=== PATIENT | male | born 1995 | race Caucasian/White ===

== ENCOUNTER 2018-01-26 19:12 | Emergency (ER) | payer BC, SELFPAY ==
[2018-01-26] MEDS ORDERED: IBUPROFEN 400 MG TAB ONE (19:37)
[2018-01-26] MEDS ORDERED: IBUPROFEN 200 MG TAB PO ONE (19:37)
--- NOTE | 2018-01-26 20:23 | ER ---
Nurse's Notes [facility] Name: Zhang Alves Age: 23 yrs Sex: Male : 1995 Arrival Date: 01/26/2018 Time: 19:12 Bed 15 Private MD: Diagnosis: Displaced unspecified fracture of right lesser toe(s) Presentation: 01/26 19:16 Presenting complaint: Patient states: Reports right 3rd toe pain during beach aj volleyball today. Transition of care: patient was not received from another setting of care. Onset of symptoms was January 26, 2018. Risk Assessment: Do you want to hurt yourself or someone else? Patient reports no desire to harm self or others. Initial Sepsis Screen: Does the patient meet any 2 criteria? No. Patient's initial sepsis screen is negative. Does the patient have a suspected source of infection? No. Patient's initial sepsis screen is negative. Care prior to arrival: None. 19:16 Method Of Arrival: Ambulatory 19:16 Acuity: SACHIN 4 aj Triage Assessment: 19:17 General: Appears in no apparent distress. comfortable, Behavior is calm, cooperative, aj appropriate for age. General: Smells of alcohol. Pain: Complains of pain in right third toe and Right third toenail. Neuro: Level of Consciousness is awake, alert, obeys commands, Oriented to person, place, time, situation, Appropriate for age. Respiratory: Airway is patent Respiratory effort is even, unlabored, Respiratory pattern is regular, symmetrical. Derm: Skin is intact, is healthy with good turgor, Skin is pink, warm \T\ dry. normal. Historical: - Allergies: 19:17 No Known Allergies; aj - Home Meds: 19:17 Bupropion Oral [Active]; aj - PMHx: 19:17 Depression; aj - PSHx: 19:17 None; aj - Immunization history:: Adult Immunizations up to date. - Social history:: Smoking status: Patient/guardian denies using tobacco, Patient uses alcohol, weekly. - Ebola Screening: : Patient negative for fever greater than or equal to 101.5 degrees Fahrenheit, and additional compatible Ebola Virus Disease symptoms Patient denies exposure to infectious person Patient denies travel to an Ebola-affected area in the 21 days before illness onset No symptoms or risks identified at this time. Screenin:31 Abuse screen: Denies threats or abuse. Nutritional screening: No deficits noted. ea Tuberculosis screening: No symptoms or risk factors identified. Fall Risk None identified. Assessment: 19:29 General: Appears in no apparent distress. Behavior is calm, cooperative, appropriate ea for age. Pain: Complains of pain in right third toe Pain does not radiate. Pain currently is 6 out of 10 on a pain scale. Quality of pain is described as aching, Pain began 30 min ago. Neuro: Level of Consciousness is awake, alert, obeys commands, Oriented to person, place, time, situation. Cardiovascular: Patient's skin is warm and dry. Respiratory: Airway is patent Respiratory effort is even, unlabored, Respiratory pattern is regular, symmetrical. GI: No signs and/or symptoms were reported involving the gastrointestinal system. : No signs and/or symptoms were reported regarding the genitourinary system. EENT: No signs and/or symptoms were reported regarding the EENT system. Derm: Skin is pink, warm \T\ dry. 20:40 Reassessment: Patient and/or family updated on plan of care and expected duration. Pain ea level reassessed. Patient is alert, oriented x 3, equal unlabored respirations, skin warm/dry/pink. Discharge instructions given to patient, verbalized the understanding of instruction. Patient states feeling better. Patient states symptoms have improved. Vital Signs: 19:17 BP 129 / 95; Pulse 102; Resp 16; Temp 98.4; Pulse Ox 97% on R/A; Weight 67.13 kg; aj Height 6 ft. 3 in. (190.50 cm); 20:32 BP 107 / 66; Pulse 60; Resp 18; Temp 98; Pulse Ox 98% on R/A; Pain 4/10; ea 19:17 Body Mass Index 18.50 (67.13 kg, 190.50 cm) ED Course: 19:12 Patient arrived in ED. ds1 19:17 Triage completed. aj 19:17 Arm band placed on left wrist. Patient placed in an exam room. aj 19:19 Jitendra Hwang MD is Attending Physician. gs 19:25 Alla Rolon, JESSICA is Primary Nurse. ea 19:31 Patient has correct armband on for positive identification. Bed in low position. Call ea light in reach. Side rails up X2. 20:00 Foot Right 3 View XRAY In Process Unspecified. EDMS 20:19 Fan Caceres MD is Referral Physician. gs 20:31 No provider procedures requiring assistance completed. ea 20:32 IV discontinued, intact, bleeding controlled, No redness/swelling at site. Pressure ea dressing applied. 20:40 Anselmo tape right third toe. ea Administered Medications: 19:40 Drug: Motrin 600 mg Route: PO; ea 20:19 Follow up: Response: No adverse reaction; Pain is decreased ea Outcome: 20:22 Discharge ordered by . gs 20:45 Discharged to home ambulatory. ea 20:45 Condition: improved 20:45 Discharge instructions given to patient, Instructed on discharge instructions, follow up and referral plans. medication usage, Demonstrated understanding of instructions, follow-up care, medications, Prescriptions given X 1. 20:45 Patient left the ED. ea Signatures: Dispatcher [employer] EDManisha Pérez RN RN aj Sanford, Demi ds1 Alla Rolon RN RN ea Starr, Gregory, MD MD gs
--- NOTE | 2018-01-26 20:23 | EDPHYS ---
Physician Documentation [facility] Name: Zhang Alves Age: 23 yrs Sex: Male : 1995 Arrival Date: 01/26/2018 Time: 19:12 Bed 15 Private MD: ED Physician Jitenrda Hwang HPI: 01/26 19:59 This 23 yrs old Male presents to ER via Ambulatory with complaints of Toe gs Injury. 19:59 The patient presents with a deformity, an injury. The complaints affect the right foot. gs Context: The problem was [place] the beach. Mechanism of Injury: blow. Onset: The symptoms/episode began/occurred suddenly. Modifying factors: the symptoms are aggravated by weight bearing. Associated signs and symptoms: Pertinent negatives: numbness. Severity of symptoms: At their worst the symptoms were moderate, in the emergency department the symptoms are unchanged. The patient has not experienced similar symptoms in the past. Historical: - Allergies: 19:17 No Known Allergies; aj - Home Meds: 19:17 Bupropion Oral [Active]; aj - PMHx: 19:17 Depression; aj - PSHx: 19:17 None; aj - Immunization history:: Adult Immunizations up to date. - Social history:: Smoking status: Patient/guardian denies using tobacco, Patient uses alcohol, weekly. - Ebola Screening: : Patient negative for fever greater than or equal to 101.5 degrees Fahrenheit, and additional compatible Ebola Virus Disease symptoms Patient denies exposure to infectious person Patient denies travel to an Ebola-affected area in the 21 days before illness onset No symptoms or risks identified at this time. ROS: 19:59 All other systems are negative. gs Exam: 19:59 Head/Face: Normocephalic, atraumatic. Eyes: Pupils equal round and reactive to light, gs extra-ocular motions intact. Lids and lashes normal. Conjunctiva and sclera are non-icteric and not injected. Cornea within normal limits. Periorbital areas with no swelling, redness, or edema. ENT: Nares patent. No nasal discharge, no septal abnormalities noted. Tympanic membranes are normal and external auditory canals are clear. Oropharynx with no redness, swelling, or masses, exudates, or evidence of obstruction, uvula midline. Mucous membranes moist. Neck: Trachea midline, no thyromegaly or masses palpated, and no cervical lymphadenopathy. Supple, full range of motion without nuchal rigidity, or vertebral point tenderness. No Meningismus. Chest/axilla: Normal chest wall appearance and motion. Nontender with no deformity. No lesions are appreciated. Cardiovascular: Regular rate and rhythm with a normal S1 and S2. No gallops, murmurs, or rubs. Normal PMI, no JVD. No pulse deficits. Respiratory: Lungs have equal breath sounds bilaterally, clear to auscultation and percussion. No rales, rhonchi or wheezes noted. No increased work of breathing, no retractions or nasal flaring. Abdomen/GI: Soft, non-tender, with normal bowel sounds. No distension or tympany. No guarding or rebound. No evidence of tenderness throughout. Back: No spinal tenderness. No costovertebral tenderness. Full range of motion. Skin: Warm, dry with normal turgor. Normal color with no rashes, no lesions, and no evidence of cellulitis. Neuro: Awake and alert, GCS 15, oriented to person, place, time, and situation. Cranial nerves II-XII grossly intact. Motor strength 5/5 in all extremities. Sensory grossly intact. Cerebellar exam normal. Normal gait. 19:59 Constitutional: The patient appears alert, awake. 19:59 Musculoskeletal/extremity: Extremities: noted in the right foot: deformity 3rd toe, ROM: limited active range of motion due to pain, limited passive range of motion due to pain, Pulses: are normal with no appreciated deficits. 19:59 Skin: injury, is not appreciated. Vital Signs: 19:17 BP 129 / 95; Pulse 102; Resp 16; Temp 98.4; Pulse Ox 97% on R/A; Weight 67.13 kg; aj Height 6 ft. 3 in. (190.50 cm); 20:32 BP 107 / 66; Pulse 60; Resp 18; Temp 98; Pulse Ox 98% on R/A; Pain 4/10; ea 19:17 Body Mass Index 18.50 (67.13 kg, 190.50 cm) aj MDM: 19:30 Patient medically screened. gs 19:59 Differential diagnosis: fracture, sprain. Data reviewed: vital signs, nurses notes. gs Response to treatment: the patient's symptoms have mildly improved after treatment, and as a result, I will discharge patient. 01/26 19:32 Order name: Foot Right 3 View XRAY; Complete Time: 20:39 01/26 19:56 Order name: Misc. Order: denisha tape right second and third toe; Complete Time: 20:31 Administered Medications: 19:40 Drug: Motrin 600 mg Route: PO; ea 20:19 Follow up: Response: No adverse reaction; Pain is decreased ea Disposition: 01/26/18 20:22 Discharged to Home. Impression: Displaced unspecified fracture of right lesser toe(s). - Condition is Stable. - Discharge Instructions: Toe Fracture. - Prescriptions for Tylenol- Codeine #4 300-60 mg Oral Tablet - take 1 tablet by ORAL route every 6 hours As needed; 6 tablet. - Medication Reconciliation Form, Thank You Letter, Antibiotic Education, Prescription Opioid Use form. - Follow up: Fan Caceres MD; When: 2 - 3 days; Reason: Re-evaluation by your physician. Signatures: Dispatcher [employer] EDManisha Pérez RN RN aj Antunez, Elena, RN RN ea Starr, Gregory, MD MD Corrections: (The following items were deleted from the chart) 20:45 20:22 01/26/2018 20:22 Discharged to Home. Impression: Displaced unspecified fracture ea of right lesser toe(s). Condition is Stable. Forms are Medication Reconciliation Form, Thank You Letter, Antibiotic Education, Prescription Opioid Use. Follow up: Fan Caceres; When: 2 - 3 days; Reason: Re-evaluation by your physician.
--- NOTE | 2018-01-26 20:38 | RAD REPORT ---
EXAM DESCRIPTION: RAD - Foot Right 3 View - 01/26/2018 8:00 pm CLINICAL HISTORY: Trauma, injury and pain to the third toe COMPARISON: None. FINDINGS: An oblique fracture is present through the head and distal shaft of the third proximal pha lanx. There is lateral displacement and angulation. Fracture does not appear to involve the articular surface of the third proximal phalanx. Middle and distal phalanges of the third toe are intact. Remaining toes are intact and no metatarsal injury seen. No air or foreign body. IMPRESSION: Fracture of the third proximal phalanx as detailed.
[2018-01-26 20:51] VITALS: BP 107/66; TEMP 98; O2SAT 98
== END 2018-01-26 20:45 | disposition home or self-care (01) ==
LOC: ER 19:12
DX: S92.501A Displaced unspecified fracture of right lesser toe(s), initial encounter for closed fracture (principal); X58.XXXA Exposure to other specified factors, initial encounter; Y93.9 Activity, unspecified; Y92.832 Beach as the place of occurrence of the external cause; F32.9 Major depressive disorder, single episode, unspecified
CPT/HCPCS: 99284

== ENCOUNTER 2018-04-18 21:16 | Emergency (ER) | payer SELFPAY ==
[2018-04-18 22:47] LABS: Urine Blood NEGATIVE (NEG); Urine Glucose NEGATIVE (NEG); Urine Protein NEGATIVE (NEG); Urine Specific Gravity >1.030 (1.005-1.030); Urine pH 5.5 (5.0-7.0)
[2018-04-18 23:11] LABS: Urine Bacteria <20 /HPF (NONE SEEN); Urine Culture Reflex Order NOT NEEDED; Urine Mucus HEAVY /HPF (NONE SEEN); Urine RBC NONE SEEN /HPF (NONE SEEN)
[2018-04-18] MEDS ORDERED: AZITHROMYCIN 250 MG TAB ONE (23:42)
[2018-04-18] MEDS ORDERED: CEFTRIAXONE 250 MG/VIAL ONE (23:43)
--- NOTE | 2018-04-19 | ER ---
Nurse's Notes [facility] Name: Zhang Alves Age: 23 yrs Sex: Male : 1995 Arrival Date: 04/18/2018 Time: 21:18 Bed 16 Private MD: Diagnosis: acute dysuria Presentation: 04/18 21:33 Presenting complaint: Patient states: Penile pain for 3 days with occasional burning aj with urination. Transition of care: patient was not received from another setting of care. Onset of symptoms was April 15, 2018. Risk Assessment: Do you want to hurt yourself or someone else? Patient reports no desire to harm self or others. Initial Sepsis Screen: Does the patient meet any 2 criteria? No. Patient's initial sepsis screen is negative. Does the patient have a suspected source of infection? No. Patient's initial sepsis screen is negative. Care prior to arrival: None. 21:33 Method Of Arrival: Ambulatory aj 21:33 Acuity: SACHIN 4 aj Triage Assessment: 21:35 General: Appears in no apparent distress. comfortable, Behavior is calm, cooperative, aj appropriate for age. Pain: Complains of pain in head of penis, shaft of penis and meatus. Neuro: Level of Consciousness is awake, alert, obeys commands, Oriented to person, place, time, situation, Appropriate for age. Respiratory: Airway is patent Respiratory effort is even, unlabored, Respiratory pattern is regular, symmetrical. : Reports burning with urination, pain with urination, in penis Denies discharge. Derm: Skin is intact, is healthy with good turgor, Skin is pink, warm \T\ dry. normal. Historical: - Allergies: 21:35 No Known Allergies; aj - Home Meds: 21:35 Bupropion Oral [Active]; aj - PMHx: 21:35 Depression; aj - PSHx: 21:35 None; aj - Immunization history:: Adult Immunizations. - Social history:: Smoking status: Patient uses tobacco products, denies chronic smoking, but will smoke occasionally, Patient uses alcohol, on a daily basis. - Ebola Screening: : Patient negative for fever greater than or equal to 101.5 degrees Fahrenheit, and additional compatible Ebola Virus Disease symptoms Patient denies exposure to infectious person Patient denies travel to an Ebola-affected area in the 21 days before illness onset No symptoms or risks identified at this time. - Family history:: not pertinent, pertinent for. Screenin:01 Abuse screen: Denies threats or abuse. Denies injuries from another. Nutritional ao screening: No deficits noted. Tuberculosis screening: No symptoms or risk factors identified. Fall Risk None identified. Assessment: 21:56 General: Appears in no apparent distress. comfortable, Behavior is calm, cooperative, ao appropriate for age. Pain: Complains of pain in shaft of penis and head of penis Pain currently is 4 out of 10 on a pain scale. Neuro: Level of Consciousness is awake, alert, obeys commands, Oriented to person, place, time, situation, Appropriate for age Moves all extremities. Full function Speech is normal, Facial symmetry appears normal, Pupils are PERRLA. Cardiovascular: Capillary refill < 3 seconds Patient's skin is warm and dry. Respiratory: Airway is patent Respiratory effort is even, unlabored, Respiratory pattern is regular, symmetrical. GI: Abdomen is flat. : Reports burning with urination, since 2 days discharge, from penis that is white, since 2 days. EENT: No signs and/or symptoms were reported regarding the EENT system. Derm: Skin is intact, Skin is pink, warm \T\ dry. normal, Skin temperature is warm. Musculoskeletal: Circulation, motion, and sensation intact. Range of motion: intact in all extremities. 23:10 Reassessment: Patient appears in no apparent distress at this time. Patient and/or ao family updated on plan of care and expected duration. Pain level reassessed. Patient is alert/active/playful, equal unlabored respirations, skin warm/dry/pink. waiting on orders. Vital Signs: 21:35 BP 115 / 76; Pulse 87; Resp 19; Temp 98.4; Pulse Ox 99% on R/A; Weight 65.77 kg; Height aj 6 ft. 4 in. (193.04 cm); 23:10 BP 118 / 74; Pulse 82; Resp 16; Pulse Ox 100% on R/A; ao 21:35 Body Mass Index 17.65 (65.77 kg, 193.04 cm) ED Course: 21:18 Patient arrived in ED. ag3 21:34 Triage completed. aj 21:35 Arm band placed on right wrist. Patient placed in waiting room, Patient notified of wait time. 21:47 Riccardo Joseph MD is Attending Physician. wi 21:53 Pawan Cordova RN is Primary Nurse. ao 22:00 Patient has correct armband on for positive identification. Pulse ox on. NIBP on. ao 04/19 00:22 No provider procedures requiring assistance completed. Patient did not have IV access ao during this emergency room visit. Administered Medications: 04/18 23:42 Drug: Rocephin (cefTRIAXone) 250 mg Route: IM; Site: right deltoid; ao 23:42 Drug: Zithromax 1 grams Route: PO; ao Outcome: 04/19 00:00 Discharge ordered by . wa 00:22 Discharged to home ambulatory. ao 00:22 Condition: stable 00:22 Discharge instructions given to patient, Instructed on discharge instructions, follow up and referral plans. Demonstrated understanding of instructions, follow-up care. 00:23 Patient left the ED. ao Signatures: Manisha Kim RN RN aj Ortiz, Alex, RN RN ao Appiah, William, MD MD wa Gomez, Alice ag3
--- NOTE | 2018-04-19 | EDPHYS ---
Physician Documentation [facility] Name: Zhang Alves Age: 23 yrs Sex: Male : 1995 Arrival Date: 04/18/2018 Time: 21:18 Bed 16 Private MD: ED Physician Riccardo Joseph HPI: 04/19 00:10 This 23 yrs old Male presents to ER via Ambulatory with complaints of Penile wa Pain. 00:10 The patient presents with urinary symptoms, dysuria. Onset: The symptoms/episode wa began/occurred 3 day(s) ago. Modifying factors: The symptoms are alleviated by nothing, the symptoms are aggravated by urinating. Associated signs and symptoms: The patient has no apparent associated signs or symptoms. Severity of symptoms: At their worst the symptoms were moderate, in the emergency department the symptoms are unchanged. The patient has experienced a previous episode, treated 6 months ago for STI. The patient has not recently seen a physician. Historical: - Allergies: 04/18 21:35 No Known Allergies; aj - Home Meds: 21:35 Bupropion Oral [Active]; aj - PMHx: 21:35 Depression; aj - PSHx: 21:35 None; aj - Immunization history:: Adult Immunizations. - Social history:: Smoking status: Patient uses tobacco products, denies chronic smoking, but will smoke occasionally, Patient uses alcohol, on a daily basis. - Ebola Screening: : Patient negative for fever greater than or equal to 101.5 degrees Fahrenheit, and additional compatible Ebola Virus Disease symptoms Patient denies exposure to infectious person Patient denies travel to an Ebola-affected area in the 21 days before illness onset No symptoms or risks identified at this time. - Family history:: not pertinent, pertinent for. ROS: 04/19 00:11 Constitutional: Negative for fever, chills, and weight loss, Eyes: Negative for injury, wa pain, redness, and discharge, ENT: Negative for injury, pain, and discharge, Neck: Negative for injury, pain, and swelling, Cardiovascular: Negative for chest pain, palpitations, and edema, Respiratory: Negative for shortness of breath, cough, wheezing, and pleuritic chest pain, Abdomen/GI: Negative for abdominal pain, nausea, vomiting, diarrhea, and constipation, Back: Negative for injury and pain, MS/Extremity: Negative for injury and deformity, Skin: Negative for injury, rash, and discoloration, Neuro: Negative for headache, weakness, numbness, tingling, and seizure. : Positive for burning with urination, Negative for hematuria, flank pain, difficulty urinating, penile discharge, testicular pain All other systems are negative. Exam: 00:12 Constitutional: This is a well developed, well nourished patient who is awake, alert, wa and in no acute distress. Head/Face: Normocephalic, atraumatic. Eyes: Pupils equal round and reactive to light, extra-ocular motions intact. Lids and lashes normal. Conjunctiva and sclera are non-icteric and not injected. Cornea within normal limits. Periorbital areas with no swelling, redness, or edema. ENT: Nares patent. No nasal discharge, no septal abnormalities noted. Tympanic membranes are normal and external auditory canals are clear. Oropharynx with no redness, swelling, or masses, exudates, or evidence of obstruction, uvula midline. Mucous membranes moist. Neck: Trachea midline, no thyromegaly or masses palpated, and no cervical lymphadenopathy. Supple, full range of motion without nuchal rigidity, or vertebral point tenderness. No Meningismus. Chest/axilla: Normal chest wall appearance and motion. Nontender with no deformity. No lesions are appreciated. Cardiovascular: Regular rate and rhythm with a normal S1 and S2. No gallops, murmurs, or rubs. Normal PMI, no JVD. No pulse deficits. Respiratory: Lungs have equal breath sounds bilaterally, clear to auscultation and percussion. No rales, rhonchi or wheezes noted. No increased work of breathing, no retractions or nasal flaring. Abdomen/GI: Soft, non-tender, with normal bowel sounds. No distension or tympany. No guarding or rebound. No evidence of tenderness throughout. Back: No spinal tenderness. No costovertebral tenderness. Full range of motion. Skin: Warm, dry with normal turgor. Normal color with no rashes, no lesions, and no evidence of cellulitis. MS/ Extremity: Pulses equal, no cyanosis. Neurovascular intact. Full, normal range of motion. Neuro: Awake and alert, GCS 15, oriented to person, place, time, and situation. Cranial nerves II-XII grossly intact. Motor strength 5/5 in all extremities. Sensory grossly intact. Cerebellar exam normal. Normal gait. Psych: Awake, alert, with orientation to person, place and time. Behavior, mood, and affect are within normal limits. 00:12 : CVA tenderness, is absent, Male external genitalia: normal, Bladder: is normal, non-distended, non-tender. Vital Signs: 04/18 21:35 BP 115 / 76; Pulse 87; Resp 19; Temp 98.4; Pulse Ox 99% on R/A; Weight 65.77 kg; Height aj 6 ft. 4 in. (193.04 cm); 23:10 BP 118 / 74; Pulse 82; Resp 16; Pulse Ox 100% on R/A; ao 21:35 Body Mass Index 17.65 (65.77 kg, 193.04 cm) MDM: 21:47 Patient medically screened. ut 04/19 00:13 Data reviewed: lab test result(s). Test interpretation: by ED physician or midlevel ut provider: UA negative. 04/18 22:18 Order name: Urine Microscopic Only; Complete Time: 23:25 ut 04/18 22:42 Order name: Urine Dipstick--Ancillary (enter results); Complete Time: 23:24 ok 04/18 22:18 Order name: Urine Dipstick-Ancillary (obtain specimen); Complete Time: 23:22 ut Administered Medications: 04/18 23:42 Drug: Rocephin (cefTRIAXone) 250 mg Route: IM; Site: right deltoid; ao 23:42 Drug: Zithromax 1 grams Route: PO; ao Disposition: 04/19/18 00:00 Discharged to Home. Impression: acute dysuria. - Condition is Stable. - Discharge Instructions: Dysuria. - Medication Reconciliation Form, Thank You Letter, Antibiotic Education, Prescription Opioid Use form. - Follow up: Private Physician; Reason: Recheck today's complaints. - Problem is new. - Symptoms have improved. - Notes: wear condoms. do not have unprotected sex. although your urine was clean, you were treated with antibiotics that cover both chlamydia and gonorrhea. your sexual partners need tested for sexually transmitted infections. Signatures: Dispatcher [employer] Manisha Silver RN RN aj Ortiz, Alex, RN RN ao Appiah, William, MD MD ut Corrections: (The following items were deleted from the chart) 04/19 00:23 00:00 04/19/2018 00:00 Discharged to Home. Impression: acute dysuria. Condition is ao Stable. Forms are Medication Reconciliation Form, Thank You Letter, Antibiotic Education, Prescription Opioid Use. Follow up: Private Physician; Reason: Recheck today's complaints. Problem is new. Symptoms have improved. wa
[2018-04-19 00:43] VITALS: TEMP 98.4
[2018-04-19 00:44] VITALS: BP 118/74; O2SAT 100
== END 2018-04-19 00:23 | disposition home or self-care (01) ==
LOC: ER 21:16
DX: R30.0 Dysuria (principal); F32.9 Major depressive disorder, single episode, unspecified
CPT/HCPCS: 81003; 81015; 96372; 99283; J0696

== ENCOUNTER 2024-03-16 12:49 | Emergency (ER) | payer SELFPAY ==
[2024-03-16] MEDS ORDERED: NA CHLORIDE 0.9% 100 ML ONE (13:23)
[2024-03-16] MEDS ORDERED: TDAP (DIPHTH,PERTUSS(ACELL),TET VAC) 0.5 ML VIAL IMVAC ONE (13:23)
[2024-03-16] MEDS ORDERED: MORPHINE 4 MG/ML SYR ONE (13:23)
[2024-03-16] MEDS ORDERED: CEFAZOLIN SODIUM 1 GM/VIAL ONE (13:23)
[2024-03-16] MEDS ORDERED: ONDANSETRON 4 MG/2 ML VIAL ONE (13:23)
[2024-03-16 13:49] LABS: Absolute Eosinophils 0.1 K/uL (0-0.5); Absolute Monocytes 0.5 K/uL (0.1-1.3); Absolute Neutrophil 4.3 K/uL (1.8-8.0); Basophils % 0.4 % (0-1.3); Eosinophils % 1.7 % (0-4.4); Hematocrit 42.9 % (39.6-49.0); Hemoglobin 14.8 g/dL (13.6-17.9); Lymphocytes % 29.4 % (15.3-44.8); MCHC 34.4 g/dL (32.0-36.0); MCV 90.1 fL (80-100); MPV 8.3 fL (7.6-11.3); Monocytes % 6.9 % (3.3-12.3); Neutrophils % 61.6 % (41.7-73.7); Platelets 305 thou/uL (152-406); RBC Red Blood Cell Count 4.77 M/uL (4.33-5.43); Red Cell Distribution Width 12.6 % (12.1-15.2)
[2024-03-16 14:03] LABS: Anion Gap 9.5 mEq/L (5.0-15.0); Potassium 3.5 mEq/L (3.5-5.1)
[2024-03-16] MEDS ORDERED: HYDROMORPHONE HCL 1 MG/ML INJ ONE (14:09)
--- NOTE | 2024-03-16 14:18 | EDPHYS ---
Physician Documentation [facility] Name: Zhang Alves Age: 29 yrs Sex: Male : 1995 Arrival Date: 03/16/2024 Time: 12:49 Bed 3 Private MD: ED Physician Hans Thomason HPI: 03/16 13:23 This 29 yrs old Male presents to ER via Ambulatory with complaints of Finger Injury. cp 13:23 The patient or guardian reports decreased range of motion, deformity, injury, a cp laceration. 13:23 The complaints affect the right index finger. Context: resulted from wooden board cp striking finger while using table saw. Onset: The symptoms/episode began/occurred just prior to arrival. Associated signs and symptoms: The patient has no apparent associated signs or symptoms. Historical: - Allergies: 12:54 No Known Allergies; bp - PMHx: 12:54 Depression; bp - Immunization history:: Adult Immunizations. - Infectious Disease History:: Denies. - Social history:: Smoking status: unknown. ROS: 13:25 Constitutional: Negative for body aches, chills, fever, cp 13:25 MS/extremity: Positive for injury or acute deformity, decreased range of motion, pain, swelling, tenderness, of the right index finger, 13:25 All other systems are negative, cp Exam: 13:30 Constitutional: The patient appears in no acute distress, alert, awake, non-toxic, well cp developed, well nourished, uncomfortable, 13:30 Head/Face: Normocephalic, atraumatic. cp 13:30 Eyes: Periorbital structures: appear normal, Conjunctiva: normal, no exudate, no injection, Lids and lashes: appear normal, bilaterally, 13:30 ENT: External ear(s): are unremarkable, Nose: is normal, Mouth: Lips: moist, Oral mucosa: moist, Posterior pharynx: Airway: no evidence of obstruction, patent, 13:30 Chest/axilla: Inspection: normal, Palpation: is normal, no crepitus, no tenderness, 13:30 Cardiovascular: Rate: normal, Rhythm: regular, 13:30 Respiratory: the patient does not display signs of respiratory distress, Respirations: normal, no use of accessory muscles, no retractions, labored breathing, is not present, Breath sounds: are clear throughout, no decreased breath sounds, no stridor, no wheezing, 13:30 Abdomen/GI: Exam negative for discomfort, distension, guarding, Inspection: abdomen appears normal, 13:30 Musculoskeletal/extremity: Extremities: noted in the right index finger: decreased ROM, deformity, laceration noted base of proximal phalanx brand side extending to lateral side of finger, Perfusion: the extremity is normally perfused throughout, the right index finger Severe pain noted. Vital Signs: 12:56 BP 120 / 81; Pulse 88; Resp 20; Temp 97.8(O); Pulse Ox 99% ; rs5 13:45 BP 125 / 80; Pulse 80; Resp 18; Pulse Ox 99% on R/A; rs5 14:07 Weight 67.5 kg; dd2 15:00 BP 132 / 84; Pulse 72; Resp 16; Pulse Ox 99% ; ko1 MDM: 13:13 Patient medically screened. cp 15:10 Data reviewed: vital signs, nurses notes, lab test result(s), radiologic studies, plain cp films, and as a result, I will transfer patient. 15:10 Differential diagnosis: dislocation, open fracture, closed fracture, contusion. I cp considered the following discharge prescriptions or medication management in the emergency department Pain Medications: At this time, prescription pain medications are not recommended. 03/16 13:21 Order name: Basic Metabolic Panel; Complete Time: 14:43 cp 03/16 14:43 Interpretation: Normal except: GLUC 121; CRE 1.32; GFR 74. cp 03/16 13:21 Order name: CBC with Diff; Complete Time: 14:43 cp 03/16 13:21 Order name: Type And Screen; Complete Time: 15:06 cp 03/16 13:21 Order name: XRAY Hand RIGHT 3 View; Complete Time: 14:43 cp 03/16 13:21 Order name: Labs collected and sent; Complete Time: 13:38 cp 03/16 14:00 Order name: Wound Care: please clean and dress wound; Complete Time: 15:23 cp Administered Medications: 13:37 Drug: ceFAZolin IVPB 1 grams IVPB once Route: IVPB; Site: left antecubital; rs5 14:30 Follow up: IV Status: Completed infusion rs5 13:38 Drug: Boostrix Tdap IM 0.5 ml IM once; as a single dose Route: IM; Site: left deltoid; rs5 14:10 Follow up: Response: No adverse reaction rs5 13:38 Drug: morphine IVP or IV 4 mg IVP once over 4 mins Route: IVP; Infused Over: 4 mins; rs5 Site: left antecubital; 14:10 Follow up: Response: No adverse reaction; Pain is decreased rs5 13:38 Drug: Ondansetron IVP 4 mg IVP once; over 2 minutes Route: IVP; Site: left antecubital; rs5 14:10 Follow up: Response: No adverse reaction rs5 14:13 Drug: HYDROmorphone IVP 1 mg IVP once Route: IVP; Site: left antecubital; dd2 14:36 Follow up: Response: No adverse reaction; Pain is decreased rs5 Disposition: 15:50 Co-signature as Attending Physician, Hans Thomason MD I reviewed the patient's care rt provided by the Advanced Practice Provider and agree with the diagnosis and treatment plan. Disposition Summary: 03/16/24 14:17 Transfer Ordered Notes: Transfer Location: [facility] cp Reason: Higher level of care cp Condition: Stable cp Problem: new cp Symptoms: have improved cp Accepting Physician: Doctor(03/16/24 15:26) laura Diagnosis - Displaced fracture of proximal phalanx of right index finger, initial encounter for cp open fracture Forms: - Medication Reconciliation Form cp - SBAR form cp Signatures: Dispatcher [employer] EDMS Freedom Emerson PA PA cp Christiano Holguin RN RN bp Oliver, Kathy, RN RN ko1 Hans Thomason MD MD rt Sudhakar Carl RN RN rs5 CHANDLER LANDA RN RN dd2 Corrections: (The following items were deleted from the chart) 15:04 13:55 MS/extremity: Positive for injury or acute deformity, decreased range of motion, cp pain, swelling, tenderness, of the right index finger, cp 15:04 13:55 Constitutional: Negative for body aches, chills, fever, cp cp 15:26 14:17 Doctor cp ko1
--- NOTE | 2024-03-16 14:18 | ER ---
Nurse's Notes [facility] Name: Zhang Alves Age: 29 yrs Sex: Male : 1995 Arrival Date: 03/16/2024 Time: 12:49 Bed 3 Private MD: Diagnosis: Displaced fracture of proximal phalanx of right index finger, initial encounter for open fracture Presentation: 03/16 12:53 Chief complaint: Patient states: PLYWOOD KICKED BACK ON TABLE SAW, R 1ST FINGER OBVIOUS bp DEFORMITY. Coronavirus screen: At this time, the client does not indicate any symptoms associated with coronavirus-19. Ebola Screen: No symptoms or risks identified at this time. Initial Sepsis Screen: Does the patient meet any 2 criteria?. Onset of symptoms was March 16, 2024 at 12:30. 12:53 Method Of Arrival: Ambulatory bp 12:53 Acuity: SACHIN 3 bp 12:56 Initial Sepsis Screen: Does the patient meet any 2 criteria? No. Patient's initial rs5 sepsis screen is negative. Does the patient have a suspected source of infection? No. Patient's initial sepsis screen is negative. Risk Assessment: Do you want to hurt yourself or someone else? Patient reports no desire to harm self or others. Triage Assessment: 12:54 General: Appears distressed, uncomfortable, Behavior is appropriate for age, agitated, bp anxious. Pain: Complains of pain in right hand. Musculoskeletal: Bony deformity noted of right index finger. Injury Description: Deformity sustained to right index finger. Historical: - Allergies: 12:54 No Known Allergies; bp - PMHx: 12:54 Depression; bp - Immunization history:: Adult Immunizations. - Infectious Disease History:: Denies. - Social history:: Smoking status: unknown. Screenin:53 [facility] ED Fall Risk Assessment (Adult) History of falling in the last 3 months, rs5 including since admission No falls in past 3 months (0 pts) Confusion or Disorientation No (0 pts) Intoxicated or Sedated No (0 pts) Impaired Gait No (0 pts) Mobility Assist Device Used No (0 pt) Altered Elimination No (0 pt) Score/Fall Risk Level 0 - 2 = Low Risk Oriented to surroundings, Maintained a safe environment. 12:53 Abuse screen: Denies threats or abuse. Nutritional screening: No deficits noted. rs5 Tuberculosis screening: No symptoms or risk factors identified. Assessment: 12:57 General: Appears distressed, uncomfortable, Behavior is cooperative, anxious. Pain: rs5 Complains of pain in right index finger Pain currently is 9 out of 10 on a pain scale. Quality of pain is described as aching, Is continuous. Neuro: Level of Consciousness is awake, alert, obeys commands, Oriented to person, place, time, situation. Cardiovascular: Patient's skin is warm and dry. Respiratory: Airway is patent Respiratory effort is even, unlabored, Respiratory pattern is regular, symmetrical. GI: Abdomen is round non-distended, Abd is soft and non tender X 4 quads. : No signs and/or symptoms were reported regarding the genitourinary system. EENT: No signs and/or symptoms were reported regarding the EENT system. Derm: Skin is intact, Skin is pink, warm \T\ dry. Derm: one inch open wound and deformity noted to right index finger. Musculoskeletal: Range of motion: limited in right hand. 13:50 Reassessment: provider notified pt is experience pain to right index finger, rating rs5 10/10, described as aching, continuouse . 14:10 Reassessment: to bedside for wound care, pt tolerated wound care well, cleansed with rs5 normal saline, nonadherent dressing applied and wrapped with gauze. 15:01 Reassessment: Patient and/or family updated on plan of care and expected duration. Pain rs5 level reassessed. Patient is alert, oriented x 3, equal unlabored respirations, skin warm/dry/pink. Vital Signs: 12:56 BP 120 / 81; Pulse 88; Resp 20; Temp 97.8(O); Pulse Ox 99% ; rs5 13:45 BP 125 / 80; Pulse 80; Resp 18; Pulse Ox 99% on R/A; rs5 14:07 Weight 67.5 kg; dd2 15:00 BP 132 / 84; Pulse 72; Resp 16; Pulse Ox 99% ; ko1 ED Course: 12:50 Patient arrived in ED. [id number] 12:52 Freedom Emerson PA is PHCP. cp 12:52 Hans Thomason MD is Attending Physician. cp 12:53 Patient has correct armband on for positive identification. Placed in gown. Bed in low rs5 position. Call light in reach. Side rails up X2. 12:53 No provider procedures requiring assistance completed. rs5 12:54 Triage completed. bp 12:54 Arm band placed on. bp 12:55 Sudhakar Carl, RN is Primary Nurse. rs5 13:01 Inserted saline lock: 20 gauge in left antecubital area, using aseptic technique. Blood rs5 collected. Flushed with 10 mL NS. 14:12 XRAY Hand RIGHT 3 View In Process Unspecified. EDMS 14:20 initiated transfer to [facility]. bd 14:33 pt accepted in transfer to [facility] by Dr Landrum admin approval given by Jesus Quinn,pt going to ER. 14:56 [facility] to transport pt to [facility] ER. bd 15:00 Provided Education on: transfer. ko1 15:00 Patient transferred, IV remains in place. ko1 Administered Medications: 13:37 Drug: ceFAZolin IVPB 1 grams IVPB once Route: IVPB; Site: left antecubital; rs5 14:30 Follow up: IV Status: Completed infusion rs5 13:38 Drug: Boostrix Tdap IM 0.5 ml IM once; as a single dose Route: IM; Site: left deltoid; rs5 14:10 Follow up: Response: No adverse reaction rs5 13:38 Drug: morphine IVP or IV 4 mg IVP once over 4 mins Route: IVP; Infused Over: 4 mins; rs5 Site: left antecubital; 14:10 Follow up: Response: No adverse reaction; Pain is decreased rs5 13:38 Drug: Ondansetron IVP 4 mg IVP once; over 2 minutes Route: IVP; Site: left antecubital; rs5 14:10 Follow up: Response: No adverse reaction rs5 14:13 Drug: HYDROmorphone IVP 1 mg IVP once Route: IVP; Site: left antecubital; dd2 14:36 Follow up: Response: No adverse reaction; Pain is decreased rs5 Medication: 13:45 VIS not applicable for this client. rs5 Outcome: 14:17 ER care complete, transfer ordered by MD. gifford 15:00 Transferred by ground EMS to [facility], Transfer form completed. ko1 15:00 Condition: improved 15:00 Instructed on the need for transfer, 15:26 Patient left the ED. ko1 Signatures: Dispatcher [employer] EDMS Dave MildredFreedom Abrams PA PA cp Peltier, Brian RN RN Jaelyn Avila Kathy, RN RN ko1 Sudhakar Carl RN RN rs5 CHANDLER LANDA RN RN dd2 Corrections: (The following items were deleted from the chart) 15:34 14:01 Reassessment: Patient and/or family updated on plan of care and expected rs5 duration. Pain level reassessed. Patient is alert, oriented x 3, equal unlabored respirations, skin warm/dry/pink. Patient states feeling better. rs5
--- NOTE | 2024-03-16 14:39 | RAD REPORT ---
EXAM DESCRIPTION: RAD - Hand Right 3 View - 03/16/2024 2:10 pm CLINICAL HISTORY: Right hand pain status post injury FINDINGS: Fracture proximal to mid aspect second proximal phalanx with moderate to marked displaceme nt of fracture fragments No dislocation is seen
[2024-03-16 15:35] VITALS: TEMP 97.8; O2SAT 99
[2024-03-16 15:51] VITALS: BP 132/84
== END 2024-03-16 15:26 | disposition short-term general hospital (02) ==
LOC: ER 12:49
DX: S62.610B Displaced fracture of proximal phalanx of right index finger, initial encounter for open fracture (principal)
CPT/HCPCS: 36415; 80048; 85025; 86850; 86900; 86901; 96365; 96372; 96375; 99285; J0690; J1170; J2405